=== PATIENT | male | born 1995 | race Caucasian/White ===

== ENCOUNTER 2024-06-29 11:43 | Inpatient (IN) | payer BC, SELFPAY ==
[2024-06-27 15:05] VITALS: BP 127/82
[2024-06-27 15:28] LABS: % Basophils 0.6 % (0-2); % Eosinophils 1.8 % (0-6); % Immature Granulocytes 0.5 % (0-0.5); % Lymphocytes 10.9 % (20.5-51.1); % Monocytes 8.7 % (1.7-9.3); % Neutrophils 77.5 % (42.2-75.2); Absolute Basophils 0.1 10^3/uL (0-0.2); Absolute Eosinophils 0.2 10^3/uL (0-0.7); Absolute Immature Granulocytes 0.1 10^3/uL (0-0.05); Absolute Lymphocytes 1.2 10^3/uL (1.2-3.4); Absolute Monocytes 0.9 10^3/uL (0.1-0.6); Absolute Neutrophils 8.2 10^3/uL (1.4-6.5); Hematocrit 41.9 % (39.0-52.0); Hemoglobin 14.3 g/dL (13.0-18.0); Mean Corp Hgb Conc. 34.1 g/dL (33.0-37.0); Mean Corpuscular Hgb 31.1 pg (27.0-31.0); Mean Corpuscular Volume 91.1 fL (80.0-94.0); Mean Platelet Volume 9.8 fL (7.4-10.4); Nucleated Red Blood Cells % 0 % (-); Platelet Count 274 10^3/uL (130-400); White Blood Cell Count 10.6 10^3/uL (4.8-10.8)
[2024-06-27 15:39] LABS: ALT (SGPT) 41 U/L (0-50); AST (SGOT) 24 U/L (17-59); Albumin 4.2 g/dl (3.5-5.0); Alkaline Phosphatase 92 U/L (38-126); Blood Urea Nitrogen 11 mg/dl (9-20); Calcium 9.8 mg/dl (8.4-10.2); Carbon Dioxide 28 mmol/L (22-30); Chloride 103 mmol/L (98-107); Glucose 105 mg/dl (70-99); Potassium 4.4 mmol/L (3.5-5.1); Sodium 142 mmol/L (135-145); Total Bilirubin 0.4 mg/dl (0.2-1.3); Total Protein 6.8 g/dl (6.3-8.2); eGFR > 60.00
--- NOTE | 2024-06-27 17:10 | ED.GENMED ---
History of Present Illness
<Jorge Luis Jacome PA-C - Last Filed: 06/27/24 18:28>
General
Chief Complaint: Skin Problem
Time Seen by Provider: 06/27/24 16:21
History of Present Illness
History of Present Illness:
28-year-old male presents to the emergency department for evaluation of left leg swelling and redness over the past week, has been on clindamycin for the past 4 days without any improvement. He has mild discomfort to the anterior knee. He works as
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 Denies fevers or chills. Denies any known trauma to the knee
Past History
<Jorge Luis Jacome PA-C - Last Filed: 06/27/24 18:28>
Past History
ED Past Medical History: Other (Cervical spine fracture 2010)
ED Past Surgical History: Orthopedic ( cervical spine fusion C3-4)
Social History
Personal: Single
Review of Systems
<Jorge Luis Jacome PA-C - Last Filed: 06/27/24 18:28>
Review of Systems
Allergies reviewed?: Yes
All Other Systems: ROS reviewed and negative except as documented in HPI and ROS
Phy Exam
<Jorge Luis Jacome PA-C - Last Filed: 06/27/24 18:28>
Physical Exam
Physical Exam:
GEN: Well appearing, NAD, WDWN
HEENT: Oral mucosa moist, no scleral icterus
Cardiac: Regular rate
Lung: No respiratory distress, no tachypnea
MSK: Diffuse circumferential erythema and edema from the lower leg extending to the mid thigh. There is diffuse swelling and bogginess of the left prepatellar soft tissues. No obvious joint effusion, no pain with passive range of motion of the
left knee
Skin: Good color, no pallor or jaundice, no rashes
Neuro: AO x3, moves all extremities freely
Psych: Calm, cooperative
Course
<Jorge Luis Jacome PA-C - Last Filed: 06/27/24 18:28>
Orders/Labs/Results
Orders:
Orders
06/27/24 15:11
Complete Blood Count/With Diff Urgent
Comprehensive Metabolic Panel Urgent
Abnormal Lab Results
06/27/24
15:11
RBC 4.60 L 10^6/uL
(4.70-6.10)
MCH 31.1 H pg
(27.0-31.0)
Abs Immat Gran (auto) 0.1 H 10^3/uL
(0-0.05)
Absolute Neuts (auto) 8.2 H 10^3/uL
(1.4-6.5)
Absolute Monos (auto) 0.9 H 10^3/uL
(0.1-0.6)
Neutrophils % 77.5 H %
(42.2-75.2)
Lymphocytes % 10.9 L %
(20.5-51.1)
Glucose 105 H mg/dl
(70-99)
06/27/24 15:11
06/27/24 15:11
Vital Signs
Initial and Last Documented VS:
Initial Vital Signs
Temp Pulse Resp BP Pulse Ox
99.4 F 88 16 127/82 97
06/27/24 15:05 06/27/24 15:05 06/27/24 15:05 06/27/24 15:05 06/27/24 15:05
Last Documented Vital Signs
Temp Pulse Resp BP Pulse Ox
99.4 F 88 16 127/82 97
06/27/24 15:05 06/27/24 15:05 06/27/24 15:05 06/27/24 15:05 06/27/24 15:05
[place];Jessee Medina DO - Last Filed: 06/27/24 18:27>
Orders/Labs/Results
Orders:
Orders
06/27/24 15:11
Complete Blood Count/With Diff Urgent
Comprehensive Metabolic Panel Urgent
Abnormal Lab Results
06/27/24
15:11
RBC 4.60 L 10^6/uL
(4.70-6.10)
MCH 31.1 H pg
(27.0-31.0)
Abs Immat Gran (auto) 0.1 H 10^3/uL
(0-0.05)
Absolute Neuts (auto) 8.2 H 10^3/uL
(1.4-6.5)
Absolute Monos (auto) 0.9 H 10^3/uL
(0.1-0.6)
Neutrophils % 77.5 H %
(42.2-75.2)
Lymphocytes % 10.9 L %
(20.5-51.1)
Glucose 105 H mg/dl
(70-99)
06/27/24 15:11
06/27/24 15:11
Vital Signs
Initial and Last Documented VS:
Initial Vital Signs
Temp Pulse Resp BP Pulse Ox
99.4 F 88 16 127/82 97
06/27/24 15:05 06/27/24 15:05 06/27/24 15:05 06/27/24 15:05 06/27/24 15:05
Last Documented Vital Signs
Temp Pulse Resp BP Pulse Ox
99.4 F 88 16 127/82 97
06/27/24 15:05 06/27/24 15:05 06/27/24 15:05 06/27/24 15:05 06/27/24 15:05
<Jorge Luis Jacome PA-C - Last Filed: 06/27/24 18:28>
MDM/Problems Addressed
MDM/Problems Addressed:
Unfortunately patient is failing outpatient management. I discussed the case with attending physician Dr. Medina, Although the patient is clinically well nonseptic he does likely have a component of prepatellar or suprapatellar bursitis and he
has high risk for MRSA given his occupation. I did offer the patient to discharge him on cephalexin and Bactrim as he has orthopedic follow-up scheduled tomorrow after shared decision discussion, he opted for admission on IV abx
<Jorge Luis Jacome PA-C - Last Filed: 06/27/24 18:28>
*Critical Care Note
Total Time (30-74mins, 75-104mins- exclusive of procedures): Not Applicable
ED Attending Note
<Jorge Luis Jacome PA-C - Last Filed: 06/27/24 18:28>
-
Portions of this chart may have been created with voice recognition software.� Occasional wrong word or��sound alike� substitutions may have occurred due to the inherent limitations of voice recognition software.
<Jessee Medina, - Last Filed: 06/27/24 18:27>
ED Attending Note
Patient seen and examined by attending physician: Yes
I performed the substantive portion of visit, reviewed & personally made and approve the management plan that is documented in note by myself or ELIE.: Yes
ED Attending Note:
I agree with Aleksey's note
Patient presents with left leg redness and swelling. Patient began having swelling redness and pain over his left patella. He was diagnosed at another institution with cellulitis and started on clindamycin. Patient states the swelling has
improved as well as his ability to range his knee but the erythema has progressed to come up to the mid thigh and spread down to his foot. The opposite leg has no erythema. He does not feel systemically ill. He denies any fever he denies any
chills, nausea or vomiting.
Exam
Left leg noted to have mild to moderate swelling over the patella with erythema extending from the knee up to the mid thigh and down to the ankle. The tissues are mildly tender. With range of motion of the knee he does not have pain in the knee
itself but rather tenderness overlying the patella.
Suspect the patient has an infected bursa with surrounding cellulitis. Patient has had some improvement clindamycin. 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 Clindamycin has a
fairly high rate of resistance to MRSA. We discussed modifying patient's antibiotics and giving this further time as an outpatient versus inpatient hospitalization with vancomycin. Patient prefers to be hospitalized and this is reasonable given he
is not done well with the clindamycin.
Discharge Plan
Departure
Patient Disposition: Admit
Date of Disposition: 06/27/24
Time of Disposition: 18:26
Presentation/result/management discussed w/ accepting MD/DO: Hospitalist
Discharge Problem:
Septic prepatellar bursitis of left knee, Cellulitis of left lower extremity
Referrals:
Karen Cevallos CRNP [Family Provider] -
Interventions
Interventions:
ED-Skin Assessment Last Done: 06/27/24 16:35
Discharge Date and Time
Print Language: [place] CITIZEN
[2024-06-27 18:22] VITALS: BMI 28.7
--- NOTE | 2024-06-27 18:49 | HPS.HSE ---
Family Physician
-
Family Physician: Karen Cevallos
Chief Complaint
-
Left knee redness swelling and tenderness
History of Present Illness
This is a 28-year-old with no signal past medical history presenting to the emergency department with persistent redness and pain over the skin of the left knee and thigh that started about 3 days ago.
Patient reported that he was playing golf 3 days ago when he started noticing some pain in his left knee. He had significant swelling and some tenderness. He was seen in the emergency department and at the time was diagnosed with prepatellar
bursitis of the left knee. Patient was placed on oral clindamycin and discharged home. He reported that at home the swelling did improve markedly and he was now able to flex his knee. However he continued to have a resting elevated heart rate,
sweating and pain. He noticed rapidly increasing redness today that has now approaches the mid thigh and almost reached the ankle.
He denies any prior episodes of skin or joint infections.
In the emergency room and patient was afebrile hemodynamically stable in no acute distress. Her chemistries were within normal limits. CBC was unremarkable with a white count of 10.6.
Medical History
Past Medical History
Past Medical History: Reports None
Past Surgical History: Reports None
Social History
Tobacco: Non-smoker
Alcohol: Occasional
Drug: None
Personal: Single
Living: With Family
Employment: Employed
Family History
Family History: Hypertension
Allergies / Home Medications
Allergies reflects when Allergies were last updated in [facility].
Home Medications with original date entered in [facility]
Allergy/Medication List:
Allergies
Allergy/AdvReac Type Severity Reaction Status Date / Time
No Known Allergies Allergy Verified 06/27/24 18:41
Review of Systems
-
History Source: Patient
Constitutional: Reports No Symptoms
EENT: Reports No Symptoms
Respiratory: Reports No Symptoms
Cardiac: Reports No Symptoms
Abdomen/GI: Reports No Symptoms
: Reports No Symptoms
Musculoskeletal: Reports Joint Swelling
Skin: Reports Rash
Neurological: Reports No Symptoms
Endocrine: Reports No Symptoms
Hematologic/Lymphatic: Reports No Symptoms
Psych: Reports No Symptoms
Physical Exam
Vital Signs
Vital Signs
Temp Pulse Resp BP Pulse Ox
99.4 F 88 16 127/82 97
06/27/24 15:05 06/27/24 15:05 06/27/24 15:05 06/27/24 15:05 06/27/24 15:05
Physical Exam
General: Well Developed, Well Nourished and Comfortable
HEENT: NormoCephalic, Anicteric, Moist mucous membranes and Atraumatic
Respiratory: Clear
Cardiac: S1/S2 and Regular Rhythm
Breast: Deferred by me
GI: Soft, Non Tender, Non Distended and Normal Bowel Sounds
Rectal: Deferred by Provider
Genito-urinary: Deferred by me
Musculoskeletal: No Clubbing, No Cyanosis, No Edema and Other (MIld to moderate effusion of left knee. Normal range of motion)
Skin: Rash (Erythema, tenderness and edema from the mid thigh to the wallace of the left leg. Minimal knee joint effusion. )
Neuro: AO x 3
Hematologic/Lymphatic: No Lymphadenopathy
Psych: Calm
Laboratory Results
-
06/27/24 15:11
06/27/24 15:11
Laboratory Results
Total Bilirubin 0.4 mg/dl (0.2-1.3) 06/27/24 15:11
AST 24 U/L (17-59) 06/27/24 15:11
ALT 41 U/L (0-50) 06/27/24 15:11
Alkaline Phosphatase 92 U/L (38-126) 06/27/24 15:11
Data Reviewed
-
Lab Data: Labs Reviewed by me
Old Records: Reviewed
Impression/Plan
-
IMPRESSION:
28 y.o w/o significant past medical history presenting to ED with prepatellar bursitis of left knee with cellulitis that worsened despite treatment with oral clindamycin for 3 days.
PLAN:
1. Cellulitis - Extensive erythema. No current systemic findings. Failure of oral abx
- admit to med/surg obs
- IV vancomycin for now
- blood cultures if febrile
- serial examinations
- elevate left knee
- DVT PPX w/ lovenox sq
Full code
[2024-06-27] MEDS: VANCOCIN 540 MG IV (19:04)
--- NOTE | 2024-06-27 20:04 | EDRN ---
Report was tubed; floor staff notified by phone. Transported by Adrián Dunbar with [facility].
[2024-06-27 20:10] VITALS: BP 122/77; BMI 28.4
--- NOTE | 2024-06-27 20:34 | PHA.VAN.IN ---
Assessment
- Assessment
Renal Function: Unknown baseline
Concomitant Antimicrobials: NONE
- Previous Dosing Experience
Previous Regimen: NONE
AUC Dosing Plan
- Dosing Variables
Dosing Weight (kg): 77.3
Dosing CrCl (ml/min): 95
Vd coefficient (L/kg): 07
- Empiric Dosing
Initial / Loading Dose: 2GM
Maintenance Regimen: 1GM IV Q12H
Estimated AUC (mcg*h/mL): 462
Estimated Peak (mcg*h/mL): 29.3
Estimated Trough (mcg/ml): 11.7
Estimated Half Life (H): 8.3
Pharmacokinetics Vancomycin I
- -
Patient Age: 28
Patient Sex: Male
Vancomycin Day #: 1
Indication: Skin And Soft Tissue (PRE-PATELLAR BURSITIS)
Requesting Provider: TRINO
Height / Weight:
Height 5 ft 5 in
Actual Weight 77.337 kg
Pertinent Past Medical History: FAILED OUTPT TX W/CLINDAMYCIN
- Vital Signs / Lab Results
Temp Pulse Resp BP Pulse Ox
97.9 F 76 18 122/77 96
06/27/24 20:10 06/27/24 20:10 06/27/24 20:10 06/27/24 20:10 06/27/24 20:10
Lab Results - Hematology
06/27/24
15:11
WBC 10.6
Lab Results - Chemistry
06/27/24
15:11
BUN 11
Creatinine 1.0
Albumin 4.2
--- NOTE | 2024-06-27 21:00 | PTCARENOTE ---
Received pt from ED via stretcher. Pt transferred off stretcher to standing scale with no assistance. AAO*4, VSS, Pt denies any pain or shortness of breath. Vanco 2gm dose infusing via LAC PIV. Bed in low position and call fleming within reach. Pt
oriented to room and updated with plan of care. All orders reviewed and acknowledged.
[2024-06-27 23:45] VITALS: BP 105/64
[2024-06-28] MEDS: VANCOCIN 200 IV (05:20)
[2024-06-28 07:40] VITALS: BP 124/77
--- NOTE | 2024-06-28 07:48 | W.PN.HOSP.TC ---
Today's Communication/Plan
-
cont IV abx
Assessment / Plan
Assessment / Plan
Physical Exam
General: Well Developed, Well Nourished and Comfortable
HEENT: NormoCephalic, Anicteric, Moist mucous membranes and Atraumatic
Respiratory: Clear
Cardiac: S1/S2 and Regular Rhythm
GI: Soft, Non Tender, Non Distended and Normal Bowel Sounds
Musculoskeletal: No Clubbing, No Cyanosis, No Edema. Mild swelling left knee noted
Skin: Erythema, tenderness and edema from the mid thigh to the wallace of the left leg. Appears significantly improved compared o line of demarcation
Neuro: AO x 3
Hematologic/Lymphatic: No Lymphadenopathy
Psych: Calm
28 y.o w/o significant past medical history presenting to ED with prepatellar bursitis of left knee with cellulitis that worsened despite treatment with oral clindamycin for 3 days.
PLAN:
1. Cellulitis - Extensive erythema. No current systemic findings. Failure of oral abx
- cont IV vancomycin for now
- blood cultures if febrile
- serial examinations
- elevate left knee
- DVT PPX w/ lovenox sq
Full code
I spent a total of 40 minutes with the patient or on the floor. More than 50% of this time involved counseling and coordination of care.
Anticipated Discharge: 24 - 48 hours
Subjective/Interval History
-
Date of Service: June 28, 2024
No acute distress, comfortable. Endorses improvement left lower ext pain swelling.
Objective Data
-
Labs:
Laboratory Results
06/28/24
07:26
WBC Pending
Hgb Pending
Hct Pending
Plt Count Pending
Sodium Pending
Potassium Pending
Chloride Pending
Carbon Dioxide Pending
BUN Pending
Creatinine Pending
Glucose Pending
Calcium Pending
Vital Signs:
Vital Signs
Temp Pulse Resp BP Pulse Ox
97.6 F 81 18 105/64 98
06/27/24 23:45 06/27/24 23:45 06/27/24 23:45 06/27/24 23:45 06/27/24 23:45
I&O
06/27/24 06/28/24 06/29/24
06:59 06:59 06:59
Intake Total 400 / 400 480 / 480
Balance 400 / 400 480 / 480
[2024-06-28 07:53] LABS: Hematocrit 39.1 % (39.0-52.0); Hemoglobin 13.4 g/dL (13.0-18.0); Mean Corp Hgb Conc. 34.3 g/dL (33.0-37.0); Mean Corpuscular Hgb 30.3 pg (27.0-31.0); Mean Corpuscular Volume 88.5 fL (80.0-94.0); Mean Platelet Volume 9.8 fL (7.4-10.4); Platelet Count 271 10^3/uL (130-400); Red Blood Cell Count 4.42 10^6/uL (4.70-6.10); White Blood Cell Count 7.7 10^3/uL (4.8-10.8)
[2024-06-28 08:36] LABS: Blood Urea Nitrogen 15 mg/dl (9-20); Calcium 9.4 mg/dl (8.4-10.2); Carbon Dioxide 27 mmol/L (22-30); Chloride 104 mmol/L (98-107); Estimated Creatinine Clearance 105 ml/min; Glucose 109 mg/dl (70-99); Sodium 142 mmol/L (135-145); eGFR > 60.00
--- NOTE | 2024-06-28 08:58 | PHA.VAN.FU ---
Vancomycin Assessment / Plan
- Assessment
Renal Function: Stable
WBC's are: WNL
In the past 24 hrs, patient has been: Afebrile
- Dosing Plan
Adjust Regimen to: Vanc 1250mg Q12H starting at 1800
New Regimen Predicts: AUC (541), Peak (34.8), Trough (13.3)
Given age, expect patient to have increased clearance compared to population-based PK predictions
- Monitoring Plan
No level(s) ordered at this time: consider levels in next few days
- Follow Up
Pharmacy will continue to follow.
Vancomycin Follow UP
- -
Patient Age: 28
Patient Sex: Male
Vancomycin Day #: 2
Indication: Skin And Soft Tissue
Requesting Provider: Dr. Marquis
Pertinent Antimicrobial Allergies:
NKDA
Height / Weight:
Height 5 ft 5 in
Actual Weight 77.337 kg
Pertinent Past Medical History: BMI ~28
- Vital Signs / Lab Results
Temp Pulse Resp BP Pulse Ox
97.6 F 81 18 105/64 98
06/27/24 23:45 06/27/24 23:45 06/27/24 23:45 06/27/24 23:45 06/27/24 23:45
Lab Results - Hematology
06/27/24 06/28/24
15:11 07:26
WBC 10.6 7.7
Lab Results - Chemistry
06/27/24 06/28/24
15:11 07:26
BUN 11 15
Creatinine 1.0 0.9
Estimated Creat Clear 105
Albumin 4.2
--- NOTE | 2024-06-28 11:34 | CM ---
Patient seen bedside.
IA completed.
Patient lives with parents in a 2 story home.
Patient independent prior to admission, works drives.
Denies any housing, food or utility insecurities.
OBS form given to patient.
Patient denies any home care needs at this time.
PCP; Mart
Pharmacy: [facility]
Plan: home no needs anticipated.
[2024-06-28 15:25] VITALS: BP 133/89
[2024-06-28] MEDS: VANCOCIN 275 MG IV (18:20)
[2024-06-29 00:16] VITALS: BP 110/64
[2024-06-29] MEDS: VANCOCIN 275 MG IV ×2 (05:10→17:57)
[2024-06-29 06:50] LABS: Hematocrit 41.6 % (39.0-52.0); Hemoglobin 14.2 g/dL (13.0-18.0); Mean Corp Hgb Conc. 34.1 g/dL (33.0-37.0); Mean Corpuscular Hgb 30.2 pg (27.0-31.0); Mean Corpuscular Volume 88.5 fL (80.0-94.0); Mean Platelet Volume 9.5 fL (7.4-10.4); Platelet Count 290 10^3/uL (130-400); Red Cell Dist. Width 11.9 % (11.5-14.5); White Blood Cell Count 8.2 10^3/uL (4.8-10.8)
--- NOTE | 2024-06-29 07:17 | W.PN.HOSP.TC ---
Today's Communication/Plan
-
cont abx
Knee X-ray
ID orthopedic eval requested
Assessment / Plan
Assessment / Plan
Physical Exam
General: Well Developed, Well Nourished and Comfortable
HEENT: NormoCephalic, Anicteric, Moist mucous membranes and Atraumatic
Respiratory: Clear
Cardiac: S1/S2 and Regular Rhythm
GI: Soft, Non Tender, Non Distended and Normal Bowel Sounds
Musculoskeletal: No Clubbing, No Cyanosis, No Edema. Mild swelling tenderness restricted range of motion left knee persists
Skin: Erythema significantly improved compared to line of demarcation
Neuro: AO x 3
Psych: Calm
28 y.o w/o significant past medical history presenting to ED with prepatellar bursitis of left knee with cellulitis that worsened despite treatment with oral clindamycin for 3 days.
PLAN:
#Cellulitis - Extensive erythema. No current systemic findings. Failure of oral abx
#Lt Knee swelling restricted range of motion persists
- cont IV vancomycin for now
- blood cultures if febrile
- serial examinations
- elevate left knee
-Knee X-ray
-ID orthopedic eval requested
DVT PPX w/ lovenox sq
Full code
I spent a total of 40 minutes with the patient or on the floor. More than 50% of this time involved counseling and coordination of care.
Anticipated Discharge: 24 - 48 hours
Subjective/Interval History
-
Date of Service: June 29, 2024
No acute distress. Erythema improved. Left knee swelling and restricted range of motion however continues to persist.
Objective Data
-
Labs:
Laboratory Results
06/29/24
06:36
WBC 8.2
Hgb 14.2
Hct 41.6
Plt Count 290
Sodium Pending
Potassium Pending
Chloride Pending
Carbon Dioxide Pending
BUN Pending
Creatinine Pending
Glucose Pending
Calcium Pending
Vital Signs:
Vital Signs
Temp Pulse Resp BP Pulse Ox
98.1 F 74 16 110/64 100
06/29/24 00:16 06/29/24 00:16 06/29/24 00:16 06/29/24 00:16 06/29/24 00:16
I&O
06/28/24 06/29/24 06/30/24
06:59 06:59 06:59
Intake Total 400 / 400 2170 / 2170
Output Total 325 / 325
Balance 400 / 400 1845 / 1845
[2024-06-29 07:30] VITALS: BP 125/64
[2024-06-29 07:30] LABS: Blood Urea Nitrogen 18 mg/dl (9-20); Calcium 9.3 mg/dl (8.4-10.2); Carbon Dioxide 25 mmol/L (22-30); Chloride 105 mmol/L (98-107); Estimated Creatinine Clearance 95 ml/min; Glucose 101 mg/dl (70-99); Phosphorus 4.4 mg/dl (2.5-4.5); Potassium 4.4 mmol/L (3.5-5.1); Sodium 143 mmol/L (135-145); eGFR > 60.00
--- NOTE | 2024-06-29 08:08 | PHA.VAN.FU ---
Vancomycin Assessment / Plan
- Assessment
Renal Function: Stable
WBC's are: WNL
In the past 24 hrs, patient has been: Afebrile
- Dosing Plan
Continue: Vanc 1250mg Q12H
- Monitoring Plan
No level(s) ordered at this time: consider levels in next few days
- Follow Up
Pharmacy will continue to follow.
Vancomycin Follow UP
- -
Patient Age: 28
Patient Sex: Male
Vancomycin Day #: 3
Indication: Skin And Soft Tissue
Requesting Provider: Dr. Marquis
Pertinent Antimicrobial Allergies:
NKDA
Height / Weight:
Height 5 ft 5 in
Actual Weight 77.337 kg
Pertinent Past Medical History: BMI ~28
- Vital Signs / Lab Results
Temp Pulse Resp BP Pulse Ox
98.1 F 74 16 110/64 100
06/29/24 00:16 06/29/24 00:16 06/29/24 00:16 06/29/24 00:16 06/29/24 00:16
Lab Results - Hematology
06/27/24 06/28/24 06/29/24
15:11 07:26 06:36
WBC 10.6 7.7 8.2
Lab Results - Chemistry
06/27/24 06/28/24 06/29/24
15:11 07:26 06:36
BUN 11 15 18
Creatinine 1.0 0.9 1.0
Estimated Creat Clear 105 95
Albumin 4.2
--- NOTE | 2024-06-29 09:53 | CM ---
Patient seen bedside.
No d/c needs anticipated.
Plan: home no needs.
[2024-06-29] MEDS: STERILE WATER FOR INJECTION 10 ML IV (15:37)
[2024-06-29] MEDS: MAXIPIME 2000 MG IV (15:37)
[2024-06-29 15:41] VITALS: BP 123/78
--- NOTE | 2024-06-29 19:24 | CON.ID ---
Consultation
-
Date/Time Consultation Requested: 06/29/2024 1416
Date/Time Consultation Performed: 06/29/2024 1908
Requesting Provider: Dr. Coelho
Performing Provider: Dr. Dean
Reason for Consultation: Left knee swelling; cellulitis
Chief Complaint / Past History
History of Present Illness
Jarrett Julio is a 28-year-old man being evaluated at the request of Dr. Coelho in regards to left knee swelling. History is obtained from chart review, along with patient interview.
The patient reports that approximately 5 days ago he was out golfing with some friends and noted that he was developing some left knee soreness. That evening, the discomfort increased, but was relieved to some degree with some Motrin. The next day
he was at a wedding and noted that he had some difficulty walking secondary to the soreness. The following day the left knee soreness somewhat improved. The following day he continued to have discomfort and was using ice to the area. He denies
any objective fevers, but reports that he did feel hot. 2 days ago he was seen in emergency room and [place] where he was at the time and was diagnosed with cellulitis and discharged on a course of clindamycin 150 mg 3 times daily. Despite
antibiotics, he had spreading erythema both proximally and distally to the knee and came to the emergency room here for further evaluation.
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 He denies any groin pain. Since admission he has been started on empiric antibiotics and has noted improvement in the erythema. Discomfort currently remains in the
overlying tissues of the knee, but he also notes some discomfort medial and lateral to the knee joint.
Past History
Past Medical History: None
Past Surgical History: Orthopedic (Cervical fusion following fracture (2010))
Allergy History:
No Known Allergies Allergy (Verified 06/27/24 18:41)
Medications Reviewed: Yes
Current Antibiotics:
Vancomycin
Cefepime
Social History
Tobacco: Non-Smoker
Alcohol: Occasional
Drug: None
Personal: Single
Employment: Employed
Review of Systems
Vital Signs
Temp Pulse Resp BP Pulse Ox
98.2 F 72 16 123/78 98
06/29/24 15:41 06/29/24 15:41 06/29/24 15:41 06/29/24 15:41 06/29/24 15:41
Physical Exam
Physical Exam
Constitutional: No Acute Distress, Comfortable and Non-toxic
Head: Normocephalic
Eyes: No Conjunctival Hemorrhage and Sclera Anicteric
Oral: No Thrush and No Ulcers
Cardiovascular: Regular Rate and S1/S2; Negative S3/S4
Pulmonary: Clear; Negative Wheezes, Rales or Rhonchi
Gastrointestinal: Soft and Non Tender
Extremities: Erythema (Mild erythema of the skin surrounding the left knee)
Musculoskeletal: Other (Swelling in the prepatellar area noted.); Negative Joint Swelling
Skin: Negative Rash or Jaundice
Neurological: Awake and Alert
Psychological: Calm
.
Lab / Diagnostic Study Results
06/29/24 06:36
06/29/24 06:36
Abs Immat Gran (auto) 0.1 10^3/uL (0-0.05) H 06/27/24 15:11
Absolute Neuts (auto) 8.2 10^3/uL (1.4-6.5) H 06/27/24 15:11
Absolute Lymphs (auto) 1.2 10^3/uL (1.2-3.4) 06/27/24 15:11
Absolute Monos (auto) 0.9 10^3/uL (0.1-0.6) H 06/27/24 15:11
Absolute Basos (auto) 0.1 10^3/uL (0-0.2) 06/27/24 15:11
Immature Gran % 0.5 % (0-0.5) 06/27/24 15:11
Neutrophils % 77.5 % (42.2-75.2) H 06/27/24 15:11
Lymphocytes % 10.9 % (20.5-51.1) L 06/27/24 15:11
Monocytes % 8.7 % (1.7-9.3) 06/27/24 15:11
Eosinophils % 1.8 % (0-6) 06/27/24 15:11
Basophils % 0.6 % (0-2) 06/27/24 15:11
Microbiology Results
Micro:
06/27/24 22:06 MRSA Screen - Final
Nose No Methicillin Resistant Staphylococcus aureus isolated.
Imaging:
06/29/2024 X-ray left knee: No acute fracture or dislocation. No joint effusion. No abnormal soft tissue calcifications. Prepatellar soft tissue swelling is noted. Bursitis possible. Please see full dictation for additional detail. Film
personally viewed.
Assessment / Plan
Left leg cellulitis
Suspected left knee prepatellar bursitis
Recommendations:
Transition to cefazolin 2 g IV every 8 hours.
Lower extremity elevation.
Monitor white count temperature curve.
Follow for clinical improvement.
--- NOTE | 2024-06-29 19:24 | CON.MD ---
Consultation - Medical
-
Full consult dictated. 28 yo male seen in his room. Admitted for cellulitis. Developed cellulitis over the weekend when out of town. He was placed on oral antibiotics but had worsening symptoms and presented to . Cellulitis started about the
knee and spread proximally and distally. AVSS. Evaluation of the left lower extremity reveals less erythema according to the patient since starting IV antibiotics. No effusion about his knee. No fluid in the bursa. Full ROM of his knee. NVI
distally. Calf soft. Xray negative. WBC normal. Impression: Cellulitis. No evidence of septic joint. Ortho to sign off. Please call if ortho concerns in the future.
[2024-06-29] MEDS: ANCEF 10 IV (22:06)
[2024-06-29 23:45] VITALS: BP 114/72
[2024-06-30] MEDS: ANCEF 10 IV ×2 (05:04→13:39)
--- NOTE | 2024-06-30 07:29 | W.PN.HOSP.TC ---
Today's Communication/Plan
-
discharge
Assessment / Plan
Assessment / Plan
Physical Exam
General: Well Developed, Well Nourished and Comfortable
HEENT: NormoCephalic, Anicteric, Moist mucous membranes and Atraumatic
Respiratory: Clear
Cardiac: S1/S2 and Regular Rhythm
GI: Soft, Non Tender, Non Distended and Normal Bowel Sounds
Musculoskeletal: No Clubbing, No Cyanosis, No Edema. Mild swelling tenderness restricted range of motion left knee persists
Skin: Erythema LLE resolved
Neuro: AO x 3
Psych: Calm
28 y.o w/o significant past medical history presenting to ED with prepatellar bursitis of left knee with cellulitis that worsened despite treatment with oral clindamycin for 3 days.
PLAN:
#Cellulitis - Extensive erythema. No current systemic findings. Failure of oral abx
#Lt Knee swelling restricted range of motion persists
- MRSA screen neg, empiric IV vancomycin d/c
- elevate left knee
-Knee X-ray appreciated Mild prepatellar soft tissue swelling, possible bursitis. No acute osseous abnormality
-orthopedic eval appreciated septic arthritis ruled out
-ID eval appreciated briefly treated with IV cefazolin, clinically improved, ok for discharge home with Keflex 750 mg PO QID for 14 additional days.
DVT PPX w/ lovenox sq
Full code
Medically stable for discharge home with outpatient follow up recommendations.
Total Time Preparing Discharge ___40____ minutes including examination of the patient, summary of the hospital stay, instructions for continuing care to all relevant caregivers; and preparation of discharge records, prescriptions, and referral
forms if necessary.
Anticipated Discharge: Today
Subjective/Interval History
-
Date of Service: June 30, 2024
Seen and examined at bedside in no acute distress resting comfortably in bed. Erythema left lower extremity essentially resolved at this time. Mild swelling reduced range of motion left knee persists. Overall patient reports feeling well. Denies
new acute issues. Eager to go home.
Objective Data
-
Labs:
Laboratory Results
06/30/24
07:14
WBC Pending
Hgb Pending
Hct Pending
Plt Count Pending
Sodium Pending
Potassium Pending
Chloride Pending
Carbon Dioxide Pending
BUN Pending
Creatinine Pending
Glucose Pending
Calcium Pending
Vital Signs:
Vital Signs
Temp Pulse Resp BP Pulse Ox
97.7 F 124 16 114/72 96
06/29/24 23:45 06/29/24 23:45 06/29/24 23:45 06/29/24 23:45 06/29/24 23:45
I&O
06/29/24 06/30/24 07/01/24
06:59 06:59 06:59
Intake Total 2170 / 2170 1460 / 1460
Output Total 325 / 325
Balance 1845 / 1845 1460 / 1460
[2024-06-30 07:41] LABS: Mean Corp Hgb Conc. 34.1 g/dL (33.0-37.0); Mean Corpuscular Hgb 29.8 pg (27.0-31.0); Mean Corpuscular Volume 87.3 fL (80.0-94.0); Mean Platelet Volume 9.3 fL (7.4-10.4); Platelet Count 325 10^3/uL (130-400); Red Blood Cell Count 5.04 10^6/uL (4.70-6.10); Red Cell Dist. Width 11.9 % (11.5-14.5); White Blood Cell Count 8.9 10^3/uL (4.8-10.8)
[2024-06-30 08:08] LABS: Blood Urea Nitrogen 17 mg/dl (9-20); Calcium 9.7 mg/dl (8.4-10.2); Carbon Dioxide 25 mmol/L (22-30); Chloride 102 mmol/L (98-107); Estimated Creatinine Clearance 105 ml/min; Glucose 92 mg/dl (70-99); Magnesium 2.1 mg/dl (1.6-2.3); Phosphorus 4.1 mg/dl (2.5-4.5); Potassium 4.5 mmol/L (3.5-5.1); Sodium 143 mmol/L (135-145); eGFR > 60.00
[2024-06-30 08:15] VITALS: BP 118/74
--- NOTE | 2024-06-30 09:47 | CM ---
Patient seen at bedside.
Dx: cellulitis L knee
IV Cefazolin
Discussed CM role.
Currently no needs identified
PLAN: Home, currently no needs.
--- NOTE | 2024-06-30 15:22 | W.PN.ID1 ---
Date of Service
Date of Service: June 30, 2024
Today's Communication
Continue antibiotics. Transition to Keflex.
Assessment / Plan
Left leg cellulitis
Suspected left knee prepatellar bursitis
Recommendations:
Patient overall improved.
Would transition to oral Keflex 750 mg p.o. 4 times daily for an additional 14 days.
Patient counseled to watch for any increased swelling or tenderness, and if noted, to give me a call. He has been advised that occasionally additional swelling of the bursa may ensue, which may require aspiration(s).
Chief Complaint
-: Cellulitis
Subjective / Review of Systems
Patient seen and examined. Overall reports feeling improved. Still some swelling on the left anterior suprapatellar area, but notes overall decreased tenderness and erythema previously noted on the leg has improved.
Vital Signs / Physical Exam
Vital Signs
Vital Signs
Temp Pulse Resp BP Pulse Ox
97.9 F 66 18 118/74 97
06/30/24 08:15 06/30/24 08:15 06/30/24 08:15 06/30/24 08:15 06/30/24 10:08
Physical Exam
Constitutional: No Acute Distress, Comfortable and Non-toxic
Eyes: Sclera Anicteric
Cardiovascular: S1/S2; Negative S3/S4
Pulmonary: Non Labored
Gastrointestinal: Normal Bowel Sounds
Extremities: Edema (minimal left leg) and Erythema (minimal)
Musculoskeletal: Other (mild swelling and boginess of the left prepatellar bursa)
Skin: Warm and Dry; Negative Rash
Neurological: Awake and Alert
Psychological: Calm
Objective Data
Lab Data
Lab Results
06/30/24 07:14
06/30/24 07:14
Estimated Creat Clear 105 ml/min 06/30/24 07:14
Total Bilirubin 0.4 mg/dl (0.2-1.3) 06/27/24 15:11
AST 24 U/L (17-59) 06/27/24 15:11
ALT 41 U/L (0-50) 06/27/24 15:11
Alkaline Phosphatase 92 U/L (38-126) 06/27/24 15:11
Most recent labs reviewed.
Micro Results:
06/27/24 22:06 MRSA Screen - Final
Nose No Methicillin Resistant Staphylococcus aureus isolated.
Imaging:
06/29/2024 X-ray left knee: No acute fracture or dislocation. No joint effusion. No abnormal soft tissue calcifications. Prepatellar soft tissue swelling is noted. Bursitis possible. Please see full dictation for additional detail. Film
personally viewed.
Care Review
Plan reviewed with: Physician (Hospitalist)
[2024-06-30 15:41] VITALS: BP 130/78
--- NOTE | 2024-06-30 15:56 | W.DCSUMMARY ---
Discharge Summary
Discharge Data
Date of Admission: 06/29/24
Date of Discharge: 06/30/24
-
Pending Results: No
Discharge Plan
-
Patient Disposition: Home (Routine Discharge)
Discharge Diagnosis/Procedures: Cellulitis Left lower extremity
Prepatellar Bursitis Left Knee
Condition: Good
Diet: Regular
Activity: As tolerated and No strenuous activity
Additional Activity: Avoid strenuous activity for 1 week then advance as tolerated.
Driving Restrictions: As prior to admission
Bathing Restrictions: None
Activity Restrictions/Additional Instructions:
Please follow up with primary care provider in 1 week of discharge and Infectious Disease in 2-3 weeks of discharge.
Keflex 750 mg, four times a day, for 14 days, has been prescribed to treated left lower extremity cellulitis and prepatellar bursitis.
Stop prior prescribed antibiotic Clindamycin as above antibiotic is replacing for treatment.
Please take medications as prescribed/recommended and follow up with primary care provider, infectious disease, and/or other healthcare provider involved in your care for further adjustments to your medication regimen as necessary.
Referrals:
Karen Cevallos CRNP [Family Provider] - in one week
Jessee Dean DO [Active] - in two to three weeks
Prescriptions:
New
cephalexin 250 mg Capsule
250 mg PO QID 14 Days Qty: 56 0RF
Rx Instructions:
to be taken with 500 mg capsule for total 750 mg four times a day for 14 days.
cephalexin 500 mg Capsule
500 mg PO QID 14 Days Qty: 56 0RF
Rx Instructions:
to be taken with 250 mg capsule for total 750 mg, four times a day, for 14 days.
Continued
clonazepam 0.5 mg Tablet
0.25 mg PO DAILYPRN PRN (Reason: anxiety)
Patient Comments:
06/27/24: last filled 02/12/24 for 30 tablets
ibuprofen 200 mg Tablet
600 mg PO Q8HPRN PRN (Reason: mild pain)
cholecalciferol (vitamin D3) [Vitamin D3] 50 mcg (2,000 unit) Tablet
50 mcg PO HS
omega 3-jvk-sif-fish oil [Fish Oil] 1,200 (144-216) mg Capsule
1 cap PO HS
Discontinued
clindamycin HCl 150 mg Capsule
150 mg PO TID
Patient Comments:
06/27/24: filled 06/24/24, to take for 10 days
Discharge Orders:
Discharge Patient (As Directed); Ordered 06/30/24
Ordered By: Aiden Coelho
Discharge Date and Time
Print Language: CUBAN
[2024-06-30] MEDS: KEFLEX 250 MG PO (17:25)
[2024-06-30] MEDS: KEFLEX 500 MG PO (17:25)
== END 2024-06-30 18:52 | disposition home or self-care (01) | DRG 603 ==
LOC: 4 EAST ACU 11:43
PROVIDERS: Emergency Medicine; ADMITTING PHYSICIAN Internal Medicine; ATTENDING PHYSICIAN Internal Medicine; CONSULT PHYSICIAN Internal Medicine Infectious Disease; CONSULT PHYSICIAN Orthopaedic Surgery; EMERGENCY PHYSICIAN Emergency Medicine; FAMILY PHYSICIAN Nurse Practitioner Primary Care
DX: L03.116 Cellulitis of left lower limb (principal); M70.42 Prepatellar bursitis, left knee; Z98.1 Arthrodesis status
CPT/HCPCS: 73560; 80048; 80053; 83735; 84100; 85025; 85027; 87070; 99285

== ENCOUNTER 2025-03-23 16:00 | Emergency (ER) | payer SELFPAY ==
[2025-03-23 16:02] VITALS: BP 141/90
[2025-03-23 16:20] VITALS: BMI 27.8
[2025-03-23] MEDS: MOTRIN 600 MG PO (17:21)
[2025-03-23 18:00] VITALS: BP 131/78
[2025-03-23] MEDS: VIBRAMYCIN 100 MG PO (18:50)
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
== END 2025-03-23 18:58 | disposition home or self-care (01) ==
LOC: EMR 16:00
PROVIDERS: EMERGENCY PHYSICIAN Emergency Medicine; FAMILY PHYSICIAN Nurse Practitioner Primary Care
DX: S09.90XA Unspecified injury of head, initial encounter (principal); V43.52XA Car driver injured in collision with other type car in traffic accident, initial encounter; Y92.410 Unspecified street and highway as the place of occurrence of the external cause; Z98.1 Arthrodesis status
CPT/HCPCS: 99284; 70450

== ENCOUNTER 2025-03-25 12:17 | Emergency (ER) | payer BC, SELFPAY ==
[2025-03-25 12:19] VITALS: BP 126/76
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
[2025-03-25] MEDS: TYLENOL 1000 MG PO (16:12)
[2025-03-25 16:16] VITALS: BP 118/77
[2025-03-25 16:34] VITALS: BP 129/83
== END 2025-03-25 16:50 | disposition home or self-care (01) ==
LOC: EMR 12:17
PROVIDERS: EMERGENCY PHYSICIAN Emergency Medicine; FAMILY PHYSICIAN Nurse Practitioner Primary Care
DX: L05.91 Pilonidal cyst without abscess (principal)
CPT/HCPCS: 99283; 10060; 87070; 87077; 87147; 87205